=== PATIENT | female | born 1985 | race Two or more races ===

== ENCOUNTER 2020-02-27 08:17 | Emergency (ER) | payer MEDICAID ==
[~2020-02-27] VITALS: Ht 167.6 cm; Wt 117.9 kg
[~2020-02-27 08:17] MED LIST: IBUPROFEN600 M1 ORAL; ROBAXIN-750750 MG PO
[2020-02-27 08:29] VITALS: BP 149/100
--- NOTE | 2020-02-27 08:30 | NUR ---
ED Nurse Note: Patient walked in to ER C/O left leg pain with tingling sensation x 1 week. Patient reports being unable to sit for too long. Per patient she was here at [facility] [place] week ago and was diagnosed with sciatica neuritis. Patient stated runed out for all medications that she was prescribed. AAO x4, VSS at this time.
[2020-02-27] MEDS ORDERED: ROBAXIN-750750 MG PO (08:56)
[2020-02-27] MEDS ORDERED: IBUPROFEN600 M1 ORAL (08:56)
[2020-02-27 09:01] VITALS: BP 149/100
--- NOTE | 2020-02-27 09:01 | NUR ---
ED Nurse Note: Pt cleared by health care Provider for discharge. DC instructions/prescription was given and explained to pt and verbalized understanding of teachings. All medical deviecs such as ID band removed. Pt is AAO x4, ambulatory and left with all personal belongings.
--- NOTE | 2020-02-27 10:27 | Emergency Room Report ---
History of Present Illness General Chief Complaint: Pain Source: Patient Present Illness HPI 34 yo Female presents to ED complaining of left leg pain. Was seen here about 1 week ago with similar pain. Was prescribed medication which she states helped. States that she was icing the area. Pain is dull, 9 out of 10, radiating from left buttock down the left leg. Denies bowel or bladder incontinence. Denies any leg or motor weakness. No other aggravating relieving factors. Denies any other associated symptoms Allergies: Coded Allergies: No Known Allergies (Unverified , 02/20/20) COVID-19 Screening Contact w/high risk pt: No Experienced COVID-19 symptoms?: No COVID-19 Testing performed FRUIT LOADER: No Patient History Past Medical History: none Past Surgical History: none Pertinent Family History: none Social History: Denies: smoking, alcohol use, drug use Last Menstrual Period: 01/22/20 Now: No Immunizations: UTD Reviewed Nursing Documentation: PMH: Agreed; PSxH: Agreed Nursing Documentation-PMH Past Medical History: No Stated History Hx Cardiac Problems: No Hx Hypertension: No Hx Pacemaker: No Hx Asthma: No Hx COPD: No Hx Diabetes: No Hx Cancer: No Hx Gastrointestinal Problems: No Hx Dialysis: No History Of Psychiatric Problem: No Hx Neurological Problems: No Hx Cerebrovascular Accident: No Hx Seizures: No Review of Systems All Other Systems: negative except mentioned in HPI Physical Exam Vital Signs Date Time Temp Pulse Resp B/P (MAP) Pulse Ox O2 Delivery O2 Flow Rate FiO2 02/27/20 08:23 97.5 99 16 149/100 (116) 98 Room Air Sp02 EP Interpretation: reviewed, normal General Appearance: no apparent distress, alert, GCS 15, non-toxic Head: normocephalic, atraumatic Eyes: bilateral eye normal inspection, bilateral eye PERRL ENT: hearing grossly normal, normal pharynx, no angioedema, normal voice Neck: full range of motion, supple/symm/no masses Respiratory: chest non-tender, lungs clear, normal breath sounds, speaking full sentences Cardiovascular #1: regular rate, rhythm, no edema Cardiovascular #2: 2+ carotid (R), 2+ carotid (L), 2+ radial (R), 2+ radial (L) , 2+ dorsalis pedis (R), 2+ dorsalis pedis (L) Gastrointestinal: normal bowel sounds, non tender, soft, non-distended, no guarding, no rebound Rectal: deferred Genitourinary: normal inspection, no CVA tenderness Musculoskeletal: back normal, normal range of motion, gait/station normal, tender - TTP L buttok to L lateral thigh Neurologic: alert, motor strength/tone normal, oriented x3, sensory intact, responsive, speech normal Psychiatric: judgement/insight normal, memory normal, mood/affect normal, no suicidal/homicidal ideation Reflexes: 3+ bicep (R), 3+ bicep (L), 3+ tricep (R), 3+ tricep (L), 3+ knee (R) , 3+ knee (L) Skin: no rash Lymphatic: no adenopathy Medical Decision Making Diagnostic Impression: Primary Impression: Muscle strain ER Course Hospital Course 34-year-old female presents to ED complaining of L leg pain no trauma Differential diagnoses include: Fracture, dislocation, sprain, contusion, bursitis Clinical course Patient placed on stretcher. After initial history, physical exam reveals an obese female in no acute distress. There is some tenderness to the left buttock radiating down the lateral thigh. No bruising. No swelling. No crepitus. Likely muscular pain. Patient states she did respond well to the ibuprofen and Robaxin prescribed previously. However she was icing the area. I explained that that is likely worsening her symptoms. She needs to apply heat. Pain is muscular. I do not believe imaging required. States she does not have a PMD. I will provide referrals to PMD and Ortho Diagnosis - muscle strain stable and discharged to home with prescription for Motrin, Robaxin. apply heat. Followup with PMD. Return to ED if symptoms recur or worsen Last Vital Signs Date Time Temp Pulse Resp B/P (MAP) Pulse Ox O2 Delivery O2 Flow Rate FiO2 02/27/20 09:01 97.5 16 149/100 98 Room Air 02/27/20 08:23 99 Status: improved Disposition: HOME, SELF-CARE Condition: Stable Scripts Methocarbamol* (ROBAXIN-750*) 750 Mg Tablet 750 MG PO TID, #21 TAB 0 Refills Prov: Marco Delong MD 02/27/20 Ibuprofen* (MOTRIN*) 600 Mg Tablet 600 MG ORAL Q6H PRN for For Pain, #30 TAB 0 Refills Prov: Marco Delong MD 02/27/20 Referrals: NOT CHOSEN IPA/,REFERRING (PCP) [facility] Open 24 hour /7 days a week by Appointment Only [address] [facility] [id number] Patient Instructions: Muscle Strain, [id number] Additional Instructions: avoid ice, use heating pads Marco Delong MD Feb 27, 2020 10:27
== END 2020-02-27 09:02 | disposition home or self-care (01) ==
LOC: EMR 08:39
DX: T14.8XXA Other injury of unspecified body region, initial encounter (principal); X58.XXXA Exposure to other specified factors, initial encounter; Y92.9 Unspecified place or not applicable; E66.9 Obesity, unspecified; Z68.41 Body mass index [BMI] 40.0-44.9, adult
CPT/HCPCS: 99282

== ENCOUNTER 2020-06-22 11:04 | Emergency (ER) | payer MEDICAID, OTHER ==
[~2020-06-22] VITALS: Ht 167.6 cm; Wt 108.9 kg
--- NOTE | 2020-06-22 11:19 | NUR ---
ED Nurse Note: pt presents to ED c/o L leg pain that is chronic for her. pt states it has been ongonig for 6 months, she has been doing exercises at home and made appts to see PCP but the pain has not helped. pt reports she has been seen here in the px and was diagnosed with sciatica. pt denies any trauma or injury to the leg
[2020-06-22 11:20] VITALS: BP 132/79
[2020-06-22] MEDS ORDERED: IBUPROFEN600 M1 ORAL (11:22)
[2020-06-22] MEDS ORDERED: ROBAXIN-750750 MG PO (11:22)
[2020-06-22 11:30] VITALS: BP 132/79
--- NOTE | 2020-06-22 11:30 | NUR ---
ER DISCHARGE NOTE: Patient is cleared to be discharged per ERMD, pt is aox4, on room air, with stable vital signs. pt was given dc and prescription instructions, pt was able to verbalize understanding, pt id band removed without complications. pt is able to ambulate with steady gait. pt took all belongings.
--- NOTE | 2020-06-22 11:31 | Emergency Room Report ---
History of Present Illness General Chief Complaint: Pain Source: Patient Present Illness HPI Disclaimer: Please note that this report is being documented using [employer] technology. This can lead to erroneous entry secondary to incorrect interpretation by the dictating instrument. HPI: 34-year-old female presents for evaluation of left leg pain. Ongoing for 6 months. Seen in the emergency department prior diagnosed with muscular strain/spasm. Denies injury. Pain is intermittent starts in the left buttock and radiates over the lateral aspect of the left leg into the mid thigh. Does not involve the hip or knee. Able to ambulate. Treated previously with ibup rofen and Robaxin which he states provided her some relief but ran out of these medications. Has not followed up with her PMD. Has not gone to physical therapy. Denies urinary retention, fecal incontinence, lower extremity weakness, back pain or injury. Denies fevers or chills. Does not inject any medications or IV drugs. PMH: Reviewed PSH: Reviewed Allergies: Denied Social Hx: Reviewed Allergies: Coded Allergies: No Known Allergies (Unverified , 02/20/20) COVID-19 Screening Contact w/high risk pt: No Experienced COVID-19 symptoms?: No COVID-19 Testing performed GLAZE GRINDER: No Nursing Documentation-PMH Hx Cardiac Problems: No Hx Hypertension: No Hx Pacemaker: No Hx Asthma: No Hx COPD: No Hx Diabetes: No Hx Cancer: No Hx Gastrointestinal Problems: No Hx Dialysis: No Hx Neurological Problems: No Hx Cerebrovascular Accident: No Hx Seizures: No Review of Systems All Other Systems: negative except mentioned in HPI Physical Exam Vital Signs Date Time Temp Pulse Resp B/P (MAP) Pulse Ox O2 Delivery O2 Flow Rate FiO2 06/22/20 11:14 98.4 85 18 132/79 (96) 97 Room Air General: Awake and alert, no acute distress HEENT: NC/AT. EOMI. Resp: Normal work of breathing Skin: Intact. No abrasions, laceration or rash over the exposed skin MSK: Normal tone and bulk. Moving all extremities. No obvious deformity. Ambulating with steady gait. Strength is 5/5 at the hips, knees and ankles. Mild tenderness palpation over the left buttock and over the lateral aspect of the left leg over the IT band. No palpable deformity. Neuro: Awake and alert. Mentating appropriately. No saddle anesthesia. Sensation intact over the dermatomes of lower extremities bilaterally. Medical Decision Making Diagnostic Impression: Primary Impression: Muscle strain ER Course 34-year-old female presents for evaluation of left leg pain. Neurologically intact. No clinical evidence of cauda equina, space-occupying mass, epidural abscess. Most consistent with muscular strain/spasm. No evidence of injury. Do not believe she requires emergent imaging at this time. We will again treat with Robaxin and NSAIDs and refer to outpatient orthopedics and physical therapy. This can be arranged through PMD. Instructed to return new or worsening symptoms. Last Vital Signs Date Time Temp Pulse Resp B/P (MAP) Pulse Ox O2 Delivery O2 Flow Rate FiO2 06/22/20 11:20 98.4 18 132/79 97 Room Air 06/22/20 11:14 85 Disposition: HOME, SELF-CARE Condition: Stable Scripts Ibuprofen* (MOTRIN*) 600 Mg Tablet 600 MG ORAL Q6H PRN for For Pain, #30 TAB 0 Refills Prov: Hood Monteiro MD 06/22/20 Methocarbamol* (ROBAXIN-750*) 750 Mg Tablet 750 MG PO QID, #28 TAB 0 Refills Prov: Hood Monteiro MD 06/22/20 Referrals: [facility] Patient Instructions: Heat Therapy Additional Instructions: Please follow-up with your primary care doctor in the next 1 to 3 days to discuss this emergency department visit and for reevaluation. If you have any new or worsening symptoms please return to the emergency department for reevaluation. Please note that this report is being documented using [employer] technology. This can lead to erroneous entry secondary to incorrect interpretation by the dictating instrument. Hood Monteiro MD Jun 22, 2020 11:31
== END 2020-06-22 11:30 | disposition home or self-care (01) ==
LOC: EMR 11:30
DX: S76.912D Strain of unspecified muscles, fascia and tendons at thigh level, left thigh, subsequent encounter (principal); X58.XXXD Exposure to other specified factors, subsequent encounter
CPT/HCPCS: 99282